=== PATIENT | female | born 1985 | race Caucasian/White ===

== ENCOUNTER 2016-07-19 20:21 | Emergency (ER) | payer OTHER ==
[~2016-07-19 20:21] MED LIST: IBUPROFEN800 M1 PO; PERCOCET 5-3251 EACH PO; SLOW RELEASE I142 MG PO
--- NOTE | 2016-07-19 20:39 | ED GI/GU/ABDOMINAL COMPLAINT ---
History of Present Illness General Chief Complaint: Abdominal Pain/Flank Pain Stated Complaint: "SEVERE ABDOMINAL PAIN" Source: patient Exam Limitations: no limitations Vital Signs & Intake/Output Vital Signs & Intake/Output Vital Signs Date Time Temp Pulse Resp B/P Pulse O2 O2 Flow FiO2 Ox Delivery Rate 07/20 2207 97.9 75 18 141/89 98 Room Air 07/20 2027 97.7 83 20 132/78 98 Allergies Coded Allergies: NO KNOWN ALLERGIES (08/09/15) Reconcile Medications Metformin HCl (Metformin HCl ER) 500 MG TAB.ER.24 2 TAB PO QPM BLOOD SUGAR/ PCOS (Reported) Omeprazole Magnesium (Prilosec Otc) 20 MG TABLET.DR 1 TAB PO DAILY GASTRITIS Vit No.130/Iron/FA ( Tablet) 27 MG IRON-800 MCG TABLET 1 TAB PO DAILY SUPPLEMENT (Reported) Sucralfate (Carafate) 1 GRAM TABLET 1 TAB PO 4 TIMES/DAY STOMACH PAIN Tylenol With Codeine (Tylenol With Codeine #3 Tablet) 300 MG-30 MG TABLET 1-2 TAB PO BIDP PRN PAIN SIX...[id number] Triage Note: PER PT SEVERE ABD PAIN X 90 MINUTES LAST NORMAL BM TODAY NO NVD NOTED NO FEVER. LMP JUST ENDED PER PT HAPPENS 3-4 TIMES BEFORE GOES AWAY ON ITS OWN Triage Nurses Notes Reviewed? yes ? N Is pt currently ? No Duration: hour(s): Timing: recent history Quality/Severity: burning Location: epigastric Radiation: no radiation Activities at Onset: none Prior Abdominal Problems: similar symptoms Modifying Factors: Worsens With: palpation. Associated Symptoms: abdominal pain HPI: 31-year-old woman with prediabetes obesity presents with midepigastric abdominal pain. She states that she has had the pain approximately 2 hours. The pain began after eating scallops. She has no nausea vomiting diarrhea fever dyspnea or chest pain. She states that she has had at least 4 prior episodes of the past several months. These episodes self resolve. However, this episode did not elyssa. She notes that she is otherwise well. She notes that she does enjoy spicy food. She has no other concerns. Past History Travel History Traveled to [place] past 21 day No Medical History Any Pertinent Medical History? 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 No Review of Systems Review of Systems Constitutional: Reports: no symptoms. EENTM: Reports: no symptoms. Respiratory: Reports: no symptoms. Cardiovascular: Reports: no symptoms. GI: Reports: no symptoms. Genitourinary: Reports: no symptoms. Musculoskeletal: Reports: no symptoms. Skin: Reports: no symptoms. Neurological/Psychological: Reports: no symptoms. Hematologic/Endocrine: Reports: no symptoms. Immunologic/Allergic: Reports: no symptoms. All Other Systems: Reviewed and Negative Physical Exam Physical Exam General Appearance: well developed/nourished, mild distress Head: atraumatic, normal appearance Eyes: Bilateral: normal appearance. Ears, Nose, Throat, Mouth: hearing grossly normal Neck: normal inspection, supple, full range of motion, normal alignment Respiratory: normal breath sounds, chest non-tender, no respiratory distress, quiet respiration, lungs clear Cardiovascular: regular rate/rhythm Gastrointestinal: normal bowel sounds, soft, midepigastric tenderness to palpation. No rebound or guarding. No right upper quadrant tenderness. No right lower quadrant tenderness. Back: normal inspection Extremities: normal range of motion Neurologic/Psych: no motor/sensory deficits, awake, alert, oriented x 3 Skin: intact, normal color, warm/dry Core Measures ACS in differential dx? No Severe Sepsis Present: No Septic Shock Present: No Progress Differential Diagnosis: GERD versus peptic ulcer disease versus biliary colic versus gastritis versus other. Plan of Care: Orders Procedure Date/time Status URINE 07/19 2029 Complete URINALYSIS 07/19 2028 Complete LIPASE 07/19 2028 Complete HEPATIC FUNCTION PANEL 07/19 2028 Complete CBC WITHOUT DIFFERENTIAL 07/19 2028 Complete BASIC METABOLIC PANEL 07/19 2028 Complete AMYLASE 07/19 2028 Complete Laboratory Tests 07/19/162049: Urine Test NEGATIVE 07/19/162049: Urine Color YEL, Urine Clarity CLEAR, Urine pH 5.5, Ur Specific [place] >= 1.030 , Urine Protein NEG, Urine Ketones NEG, Urine Nitrite NEG, Urine Bilirubin NEG, Urine Urobilinogen 0.2, Ur Leukocyte Esterase NEG, Ur Microscopic EXAM NOT REQUIRED, Urine Hemoglobin NEG, Urine Glucose NEG 07/19/162042: Anion Gap 10, Estimated GFR > 60, BUN/Creatinine Ratio 23.3, Glucose 112 H, Calcium 9.3, Total Bilirubin 0.4, Direct Bilirubin 0.4, AST 55 H, ALT 53 H, Alkaline Phosphatase 117, Total Protein 7.2, Albumin 4.2, Amylase < 30 L, Lipase 162, CBC w Diff NO MAN DIFF REQ, RBC 4.41, MCV 85.1, MCH 28.4, RDW 14.2, MPV 7.5, Gran % 76.7 H, Lymphocytes % 18.4 L, Monocytes % 4.0, Eosinophils % 0.6, Basophils % 0.3, Absolute Granulocytes 9.2 H, Absolute Lymphocytes 2.2, Absolute Monocytes 0.5, Absolute Eosinophils 0.1, Absolute Basophils 0, PUBS MCHC 33.4 Initial ED EKG: none Departure Departure Disposition: HOME OR SELF CARE Condition: Stable Clinical Impression Primary Impression: Abdominal pain Referrals: PATIENT HAS NO PRIMARY CARE DR (PCP/Family) Departure Forms: Customer Survey General Discharge Information Prescriptions: Current Visit Scripts Sucralfate (Carafate) 1 TAB PO 4 TIMES/DAY #120 TAB Ref 1 Omeprazole Magnesium (Prilosec Otc) 1 TAB PO DAILY #30 TAB Ref 1 Tylenol With Codeine (Tylenol With Codeine #3 Tablet) 1-2 TAB PO BIDP PRN PAIN #6 TAB SIX...[id number] Comments 07/19/16, 22:11... Pt improved with supportive measures.... labs benign... no rlq , ruq tenderness. no bolton's sign on two abdominal exams.... Pt likely with gerd/gastritis type illness.... Discussed getting a CAT scan. However because of her benign labs and the exam consistent with gastritis/GERD, we elected to defer this. I prescribed prilosec / carafate... close follow up advised.
[2016-07-19 20:50] LABS: ABSOLUTE BASOPHIL COUNT 0 /CUMM (0.0-0.2); ABSOLUTE EOSINOPHIL COUNT 0.1 /CUMM (0.0-0.7); ABSOLUTE GRANULOCYTE CT 9.2 /CUMM (1.4-6.5); ABSOLUTE LYMPH COUNT 2.2 /CUMM (1.2-3.4); ABSOLUTE MONOCYTE COUNT 0.5 /CUMM (0.10-0.60); BASOPHIL % 0.3 % (0.0-2.0); EOSINOPHIL % 0.6 % (0-5); GRANULOCYTE % 76.7 % (42.2-75.2); HEMATOCRIT 37.5 % (37-47); MEAN CORPUSCULAR HGB 28.4 PG (27.0-31.0); MEAN CORPUSCULAR HGB CONC 33.4 G/DL (33.0-37.0); MEAN CORPUSCULAR VOLUME 85.1 FL (81.0-99.0); MEAN PLATELET VOLUME 7.5 FL (7.4-10.4); PLATELET COUNT 271 /CUMM (130-400); RBC DISTRIBUTION WIDTH 14.2 % (11.5-14.5); RED BLOOD CELL CT 4.41 /CUMM (4.20-5.40); WHITE BLOOD CELL COUNT 11.9 /CUMM (4.8-10.8)
[2016-07-19] MEDS ORDERED: PRENATAL TABLE1 EAC2 PO (21:05)
[2016-07-19] MEDS ORDERED: METFORMIN HCL500 M2 PO (21:05)
[2016-07-19] MEDS ORDERED: CARAFATE1 G1 PO (21:45)
[2016-07-19] MEDS ORDERED: PRILOSEC OTC20 M1 PO (21:45)
[2016-07-19] MEDS ORDERED: TYLENOL WITH C1 EACH PO (22:04)
[2016-07-19 22:08] VITALS: BP 141/89
== END 2016-07-19 22:12 ==
LOC: ERH 20:21
PROVIDERS: Pediatrics
DX: R10.13 Epigastric pain (principal)
CPT/HCPCS: 81003; 81025; 96374